=== PATIENT | male | born 1980 | race Two or more races ===

== ENCOUNTER 2024-03-21 08:44 | Outpatient (REF) | payer BC, SELFPAY ==
--- NOTE | ~2024-03-21 | CT_ITS ---
EXAMINATION: CT BRAIN, HEAD CLINICAL INFORMATION: History of subarachnoid hemorrhage COMPARISON: None available. TECHNIQUE: Multiple axial images were obtained from base of skull to the vertex before and after IV contrast enhancement. Coronal and sagittal images of the brain were reconstructed from the axial image data. This CT examination was performed using dose optimization techniques as appropriate, variously including the following: *Automated exposure control *Adjustment of mA and/or kV according to patient size (this includes techniques or standardized protocols for targeted exams where dose is matched to indication/reason for exam; i.e. extremities or head) *Use of iterative reconstruction technique FINDINGS: Ventricles, sulci and cisterns are normal. Subtle focal relative high attenuation is seen in left superior anterior frontal sulcus, series 4 image #22. There is no midline shift. Barnhart and white matter differentiation is normal. Post contrast images show normal enhancement of major intracerebral blood vessels. No enhancing intracranial mass lesion or abnormal meningeal enhancement could be seen. Bone window images show no evidence of skull fracture. CT/CT angio head IMPRESSION: 1. Subtle tiny high density focus in left superior anterior frontal sulcus is seen, could represent regional variation in attenuation. Correlation with previous CT scan of brain is recommended to exclude minimal residual focal subarachnoid hematoma. 2. No evidence of skull fracture is seen. 3. No evidence of space occupying lesion could be found. 4. The current plain CT scan of the brain shows no diagnostic evidence of acute cerebral infarction. EXAMINATION: CT ANGIOGRAM BRAIN, HEAD CLINICAL INFORMATION: History of subarachnoid hemorrhage COMPARISON: None available. TECHNIQUE: Test bolus sequences followed by intravenous administration 85 mL of Omnipaque 350 intravenous contrast. Helical imaging was performed in the axial plane from the skull base to the vertex. Delayed postcontrast imaging of the head was also performed. The data was processed at the cardiovascular technologist workstation for generation of MIP sequences. Three-dimensional volume rendered reformatted images were also generated at an offline 3-D workstation. The degree of stenosis determined by NASCET criteria. This CT examination was performed using dose optimization techniques as appropriate, variously including the following: *Automated exposure control *Adjustment of mA and/or kV according to patient size (this includes techniques or standardized protocols for targeted exams where dose is matched to indication/reason for exam; i.e. extremities or head) *Use of iterative reconstruction technique DLP: 2569 mGy-cm FINDINGS: There is normal visualization of bilateral anterior, middle and posterior cerebral arteries, internal carotid arteries, basilar artery and terminal portions of bilateral vertebral arteries. Anterior communicating artery is normal. Bilateral posterior communicating arteries are normal. A1 segment of left anterior cerebral artery is slightly hypoplastic. Bilateral internal carotid siphons are smoothly patent. A tiny lateral excrescence is seen protruding from posterior C4 segment of left internal carotid siphon, measuring 1.6 mm in AP diameter, 1.8 mm in width, 1.4 mm in vertical height. Bilateral ethmoid sinuses and bilateral frontal sinuses: show moderate mucosal thickening. Bilateral maxillary sinuses and right sphenoid sinus show mild circumferential mucosal thickening. Moderate mucosal thickening is seen at the floor of right maxillary sinus. IMPRESSION: 1. Normal CT angiogram of the brain. 2. No focal cerebral arterial lesion or significant arterial stenosis is seen. 3. 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 4. Pansinusitis.
[2024-03-21] MEDS: iohexoL 350 MG/ML 100 ML INFUS..BTL 85 ML IV (09:24)
== END 2024-03-21 08:45 | disposition home or self-care (01) ==
LOC: HO.CT 08:44
PROVIDERS: PCP Pediatrics; Visit Provider Psychiatry & Neurology Neurology
DX: Z86.79 Personal history of other diseases of the circulatory system (principal)
CPT/HCPCS: 70496; Q9967